=== PATIENT | female | born 1955 | race Caucasian/White ===

== ENCOUNTER 2016-11-26 18:47 | Inpatient (IN) | payer MEDICARE ==
[~2016-11-26] VITALS: Ht 144.8 cm; Wt 50.6 kg
--- NOTE | ~2016-11-26 | CR72 ---
[facility] A Service of [facility] RADIOLOGY TEXT RESULTS PATIENT: NOA MICHAEL LOCATION: [facility] 560-01 : 55 UNIT #: [id number] AGE: [address]: Krzysztof Schroeder MD SEX: F ORDER DR: [id number] [facility] [address] [facility]. [place], [place] [address] [id number] I MR#: [id number] Acc #: [id number] NAME: NOA MICHAEL. : 1955 SEX: F STUDY DATE/TIME: 12/07/2016 6:33 UNIT: [facility] ROOM: [facility] STUDY DESCRIPTION: CR Chest Single View Portable Attending Physician: Fariba Schroeder M.D. Ordering Physician: Fariba Schroeder M.D. Primary Care Physician: Miguel Monsivais A.P.R.N. MEDICAL IMAGING REPORT This report is preliminary unless electronic signature is present EXAM Portable chest 12/07 INDICATION Cough and shortness of air for 11 days. Pulmonary fibrosis. FINDINGS AP portable chest compared with 12/03/2016. Cardiomegaly stable. Right arm PICC in the lower SVC. Pulmonary fibrosis is unchanged. No clear acute infiltrate. There is chronic elevation of the right hemidiaphragm. No pneumothorax. Dictated by... Zi Martin Jr., M.D. THIS IS AN ELECTRONICALLY VERIFIED REPORT Zi Martin Jr., M.D. at 12/07/2016 4:38 PM MAR/kathy TD: 12/07/2016 14:15 JOB #: [id number] MEDICAL IMAGING REPORT Page 1 of 1 COPY
--- NOTE | ~2016-11-26 | EKG ---
PATIENT: NOA MICHAEL UNIT #: [id number] Ventricular Rate: 58 BPM Atrial Rate: 58 BPM P-R Interval: 114 ms QRS Duration: 80 ms Q-T Interval: 406 ms QTC Calculation(Bezet): 398 ms P [place]: 37 degrees Calculated R [place]: 12 degrees Calculated T [place]: 40 degrees Diagnosis Line: Sinus bradycardia Diagnosis Line: Otherwise normal ECG Diagnosis Line: When compared with ECG of 07-DEC-2016 09:47, Diagnosis Line: No significant change was found Diagnosis Line: Confirmed by SHILPA JAY MD ([id number]) on 12/08/2016 Diagnosis Line: 9:42:25 PM INTERPRETING MD: MISTY REVELES
--- NOTE | ~2016-11-26 | EKG ---
PATIENT: NOA MICHAEL UNIT #: [id number] Ventricular Rate: 98 BPM Atrial Rate: 98 BPM P-R Interval: 106 ms QRS Duration: 74 ms Q-T Interval: 342 ms QTC Calculation(Bezet): 436 ms P [place]: 46 degrees Calculated R [place]: -17 degrees Calculated T [place]: 67 degrees Diagnosis Line: Sinus rhythm with short NE Diagnosis Line: Nonspecific ST and T wave abnormality Diagnosis Line: Abnormal ECG Diagnosis Line: When compared with ECG of 16-DEC-2015 13:54, Diagnosis Line: Nonspecific T wave abnormality now evident in Diagnosis Line: Lateral leads Diagnosis Line: Confirmed by BRAULIO ARREAGA MD ([id number]) on Diagnosis Line: 11/27/2016 10:53:40 AM INTERPRETING MD: WHITLEY REVELES
--- NOTE | ~2016-11-26 | CR72 ---
[facility] A Service of [facility] RADIOLOGY TEXT RESULTS PATIENT: NOA MICHAEL LOCATION: [facility] : 55 UNIT #: [id number] AGE: [address]: Krzysztof Schroeder MD SEX: F ORDER DR: [id number] [facility]. [place], [place] [address] [id number] I MR#: [id number] #: [id number] NAME: NOA MICHAEL. : 1955 SEX: F STUDY DATE/TIME: 11/26/2016 19:39 UNIT: [facility] ROOM: [facility] STUDY DESCRIPTION: CR Chest Single View Portable Attending Physician: Fariba Schroeder M.D. Ordering Physician: Zi Vitale M.D. Primary Care Physician: Miguel Monsivais A.P.R.N. MEDICAL IMAGING REPORT This report is preliminary unless electronic signature is present EXAM Portable chest 11/26/2016. HISTORY 61-year-old female with shortness of air and chest pain for 3 months, worsening over the last 1 week. History of diabetes and idiopathic pulmonary fibrosis. COMPARISON Chest 12/16/2015. FINDINGS 2 frontal views of the chest again demonstrate diffuse coarse interstitial changes throughout both lungs, consistent with pulmonary fibrosis. No definite new pulmonary infiltrates identified. No pneumothorax or pleural effusion. Heart size and mediastinum are within normal limits. Pulmonary vasculature unremarkable. IMPRESSION Diffuse coarse bilateral interstitial opacities throughout both lungs, consistent with known history of the pathic pulmonary fibrosis. No definite new pulmonary infiltrates identified. Dictated by... Sedrick Christopher M.D. THIS IS AN ELECTRONICALLY VERIFIED REPORT Sedrick Christopher M.D. at 11/27/2016 4:41 PM DANIEL/aftab TD: 11/27/2016 08:28 JOB #: [id number] [facility] A Service of [facility] RADIOLOGY TEXT RESULTS PATIENT: NOA MICHAEL LOCATION: [facility] : 55 UNIT #: [id number] AGE: [address]: Krzysztof Schroeder MD SEX: F ORDER DR: MEDICAL IMAGING REPORT Page 1 of 1 COPY
--- NOTE | ~2016-11-26 | EKG ---
PATIENT: NOA MICHAEL UNIT #: [id number] Ventricular Rate: 52 BPM Atrial Rate: 52 BPM P-R Interval: 124 ms QRS Duration: 80 ms Q-T Interval: 448 ms QTC Calculation(Bezet): 416 ms P [place]: 31 degrees Calculated R [place]: 14 degrees Calculated T [place]: 22 degrees Diagnosis Line: Sinus bradycardia Diagnosis Line: Otherwise normal ECG Diagnosis Line: When compared with ECG of 02-DEC-2016 13:30, Diagnosis Line: (unconfirmed) Diagnosis Line: No significant change was found Diagnosis Line: Confirmed by SHILPA JAY MD ([id number]) on 12/05/2016 Diagnosis Line: 3:19:11 PM INTERPRETING MD: MISTY REVELES
--- NOTE | ~2016-11-26 | EKG ---
PATIENT: NOA MICHAEL UNIT #: [id number] Ventricular Rate: 53 BPM Atrial Rate: 53 BPM P-R Interval: 112 ms QRS Duration: 74 ms Q-T Interval: 426 ms QTC Calculation(Bezet): 399 ms P [place]: 32 degrees Calculated R [place]: 2 degrees Calculated T [place]: 25 degrees Diagnosis Line: Sinus bradycardia Diagnosis Line: Otherwise normal ECG Diagnosis Line: When compared with ECG of 03-DEC-2016 05:37, Diagnosis Line: No significant change was found Diagnosis Line: Confirmed by SHILPA JAY MD ([id number]) on 12/08/2016 Diagnosis Line: 5:15:02 AM INTERPRETING MD: MISTY REVELES
--- NOTE | ~2016-11-26 | CR72 ---
[facility] A Service of [facility] & [facility] RADIOLOGY TEXT RESULTS PATIENT: NOA MICHAEL LOCATION: [facility] 560-01 : 55 UNIT #: [id number] AGE: [address]: Krzysztof Schroeder MD SEX: F ORDER DR: [id number] [facility] [address] [facility] [place], [place] [address] [id number] I MR#: [id number] Acc #: [id number] NAME: NOA MICHAEL. : 1955 SEX: F STUDY DATE/TIME: 12/08/2016 5:00 UNIT: [facility] ROOM: [facility] STUDY DESCRIPTION: CR Chest Single View Portable Attending Physician: Krzysztof Schroeder Ordering Physician: Fariba Schroeder M.D. Primary Care Physician: Alvina GouldPNiaRFelipe MEDICAL IMAGING REPORT This report is preliminary unless electronic signature is present EXAM CHEST x-ray: 12/08/2016 HISTORY Pulmonary fibrosis. Shortness of air and cough. Follow up inpatient cardiopulmonary status. TECHNIQUE AP portable chest x-ray. FINDINGS Moderately severe diffuse chronic interstitial pulmonary fibrosis throughout the periphery of both lungs, unchanged since yesterday. No evidence of superimposed acute pulmonary infiltrate or pleural effusion. Stable mild cardiomegaly. Stable chronic elevation right hemidiaphragm. Right arm PICC tip in the upper right atrium. IMPRESSION Stable portable chest radiograph, unchanged since yesterday. Dictated by... Tomás Lanier M.D. THIS IS AN ELECTRONICALLY VERIFIED REPORT Tomás Lanier M.D. at 12/08/2016 9:59 PM VIVIW/chaya TD: 12/08/2016 13:26 JOB #: [id number] MEDICAL IMAGING REPORT Page 1 of 1 COPY
--- NOTE | ~2016-11-26 | EKG ---
PATIENT: NOA MICHAEL UNIT #: [id number] Ventricular Rate: 58 BPM Atrial Rate: 58 BPM P-R Interval: 122 ms QRS Duration: 76 ms Q-T Interval: 410 ms QTC Calculation(Bezet): 402 ms P [place]: 47 degrees Calculated R [place]: 21 degrees Calculated T [place]: 48 degrees Diagnosis Line: Sinus bradycardia Diagnosis Line: Otherwise normal ECG Diagnosis Line: When compared with ECG of 05-DEC-2016 23:16, Diagnosis Line: (unconfirmed) Diagnosis Line: No significant change was found Diagnosis Line: Confirmed by SHILPA JAY MD ([id number]) on 12/08/2016 Diagnosis Line: 5:16:07 AM INTERPRETING MD: MISTY REVELES
--- NOTE | ~2016-11-26 | DS ---
Unit #: [id number] #: [id number] Patient: NOA MICHAEL [id number] [facility]. [place], [place] [address] [id number] I MR#: [id number] NAME: NOA MICHAEL. ROOM: 560 Age: 61 Sex: F Admission Date: 11/26/2016 : 1955 Discharge Date: 12/08/2016 Attending Physician: Fariba Schroeder M.D. Primary Care Physician: Miguel Monsivais A.P.R.N. DISCHARGE SUMMARY DIAGNOSES 1. Chronic obstructive pulmonary disease exacerbation. 2. Shortness of breath. 3. Chest pain. 4. Pulmonary fibrosis. 5. History of syncope. 6. Sinus pause of 3 seconds. 7. Coronary artery disease, left circumflex. PROCEDURE Procedure is stenting of the left circumflex. CONSULTANTS Consulting is Dr. Santiago. HISTORY/HOSPITAL COURSE This is a 61-year-old lady with a history of severe COPD and pulmonary fibrosis who had a WI at [facility] remotely. The patient has significant hypertension, COPD, pulmonary fibrosis, depression, quit smoking approximately 6 months ago. Patient presented to emergency department with complaints of increasing shortness of breath for 1 week. Patient reports that she has been undergoing a lot of stress. Her granddaughter had a seizure. Patient noted that when she was walking from [place] parking lot, she was having progressive shortness of breath. Patient was brought into the hospital following that. Patient states that she has been feeling dizzy spells, difficulty urinating for several weeks. She had 1 syncopal episode and no significant chest pain. She has been having a dry, hacky cough once she was admitted (1) to the hospital. Patient sleeps approximately on 2 to 3 pillows at night. In the emergency department patient's vital signs showed a heart rate of 101, but she was hypoxic; therefore, she was admitted to the hospital. Patient a usual course of decreasing steroids, as well as antibiotics, for COPD exacerbation. Patient improved very quickly. She is on Plaquenil at home, and on hospital day 4 patient was going to be discharged. However, it was noted that she had a significant transaminitis. Plaquenil was stopped and the patient completed her course of azithromycin with no significant worsening of shortness of breath, and on hospital day 5 patient was going to be discharged. However, she had a 3-second pause. Cardiology consulted. She had a stress test, which showed some inferior stress-induced ischemia. Therefore, patient had a cardiac catheterization, which showed disease in the left circumflex. This was attempted to be treated medically; however, only 2 days prior to "admission," the patient developed significant chest pain, and, therefore, on hospital day 11 Unit #: [id number] #: [id number] Patient: NOA MICHAEL patient had a cardiac catheterization with stent placement. Following this, patient is ready to go home and follow up in our office for COPD. DISCHARGE MEDICATIONS The discharge medications include: 1. Ventolin 2 puffs every 4 hours as needed. 2. Symbicort 2 puffs b.i.d. 3. Ipratropium albuterol nebs t.i.d. 4. Prednisone 60 mg x1 day, 50 mg x1 day, 40 mg x1 day, 30 mg x1 day, 20 mg x1 day, 10 mg x1 day. 5. Gabapentin 300 mg p.o. t.i.d. 6. Zofran 4 mg q.4 hours as needed for nausea. 7. Alprazolam 0.25 mg t.i.d. p.r.n. anxiety. 8. Dulera 200 mcg 2 puffs inhaled twice daily. 9. Metoprolol 12.5 mg twice daily. 10. Reglan 10 mg p.o. b.i.d. 11. Aspirin 81 mg a day. 12. Hydrocodone/acetaminophen 7.5/325 - 1 tablet p.o. t.i.d. p.r.n. 13. Plavix 75 mg daily. 14. Tudorza Pressair 400 mcg b.i.d. 15. Nitroglycerin 0.4 mg sublingual p.r.n. chest pain. 16. Lisinopril 10 mg p.o. q.h.s. 17. Atorvastatin 40 mg p.o. q.h.s. FOLLOW-UP 1. Patient is to follow up with cardiology, Dr. Santiago's office, in 2 weeks. 2. Patient is to follow up with our office in approximately 2 to 3 weeks. 3. Patient is to follow up with primary care doctor to have her pain and anxiety medications refilled. DIET Diet is regular as tolerated. ACTIVITY Activity is as tolerated. Dictated by... Valerie Diaz/juan miguel TD: 12/10/2016 07:35 JOB #: [id number] DISCHARGE SUMMARY Page 1 of 1 X Krzysztof Schroeder MD X DISCHARGE SUMMARY
--- NOTE | ~2016-11-26 | CO ---
Unit #: [id number] #: [id number] Patient: NOA MICHAEL [id number] [facility] [address] [facility]. [place], [place] [address] [id number] I MR#: [id number] NAME: NOA MICHAEL ROOM: 560 Age: 61 Sex: F Admission Date: 11/26/2016 : 1955 Attending Physician: Fariba Schroeder M.D. Primary Care Physician: Miguel Monsivais A.P.R.N. Consultation Date: 12/02/2016 CONSULTATION REPORT REASON FOR CONSULTATION A 3.4 second pause. 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 In 2011 at [facility], she did have a negative Lexiscan Cardiolite stress test. Patient also reports that she was told back in the that she may have had a CT at [facility] but she left against medical advice and details are unknown from this admission. Additional past medical history includes: Hypertension, COPD, pulmonary fibrosis, depression, and reformed tobaccoism. Patient reports that she quit smoking six months ago but has smoked one pack of cigarettes per day since the age of 16. She also informs me that her father required a permanent pacemaker at the age of 60 for a decreased heart rate; however, details again are unknown. Patient presented to the emergency department on November 26, 2016 with complaints of increase of shortness of breath x1 week. The patient reports that she has been undergoing a lot of stress at home and approximately one week ago, her granddaughter had a seizure and had to be admitted to [facility]. The patient noted that from walking to the parking lot into the hospital that she is becoming more and more short of breath. Once her granddaughter was released from the hospital, the patient's family brought her in for further evaluation. The patient also tells me that approximately two weeks she was urinating and felt dizzy. When she went to stand up, she lost consciousness. She does not remember falling to the ground but she was found by her daughter. There have been no reports of chest pain. The patient does inform me that she has had a dry hacky cough but since being admitted to the hospital has become more productive. The patient informs me that she also sleeps on two to three pillows at night. In the emergency department, the patient's vital signs were temperature 98, heart rate 101, respirations 24, blood pressure 102/65, and she was oxygenating 95% on 4 L nasal cannula. She is apparently on chronic O2 at home at 2 to 3 L. She was treated with Solu-Medrol and doxycycline. Pulmonary is following for her respiratory issues. EKG shows sinus rhythm with a rate of 98 beats per minute. Again, the patient denies any complaints of chest pain. PAST MEDICAL HISTORY 1. A 2011 negative Lexiscan Cardiolite stress test. 2. Possible CT at [facility] 20-30 years ago with no details. 3. COPD. 4. Idiopathic pulmonary fibrosis. Unit #: [id number] #: [id number] Patient: NOA MICHAEL 5. Hypertension. 6. Depression. 7. Colon polyps. PAST SURGICAL HISTORY 1. x3. 2. Hysterectomy. 3. Right arm surgery. 4. Right and left knee surgery. 5. Appendectomy. 6. Cholecystectomy. 7. Left lung biopsy. ALLERGIES No known allergies. HOME MEDICATIONS 1. Ipratropium albuterol 3 mL inhalation three times daily. 2. Plaquenil 200 mg p.o. daily. 3. Aspirin 81 mg p.o. every other day. 4. Ventolin two puffs inhalation every four hours p.r.n. shortness of breath. 5. Symbicort 80/4.5 mcg two puffs inhalation b.i.d. 6. Zofran 4 mg p.o. every four hours p.r.n. nausea. 7. Reglan 10 mg p.o. b.i.d. 8. Doxycycline 100 mg p.o. b.i.d. 9. Omnicef 300 mg p.o. b.i.d. 10. Tudorza Pressair 400 mcg inhalation b.i.d. 11. [place] 7.5/325 mg one tab p.o. three times daily p.r.n. 12. Xanax 0.25 mg p.o. daily p.r.n. anxiety. 13. Gabapentin 300 mg p.o. three times daily. FAMILY HISTORY Patient reports that there is a family history of throat cancer, hypertension, coronary artery disease. She informs me that her father at the age of 60 had to have permanent pacemaker placed secondary to a low heart rate. SOCIAL HISTORY Patient endorses that she quit smoking six months ago. She has been smoking one pack of cigarettes per day since the age of 16. She denies any illicit drug abuse or alcohol use. She lives with her daughter and her two grandkids, one of which is autistic. REVIEW OF SYSTEMS A 10-point review of systems has been done and is considered otherwise negative unless indicated in the HPI. PHYSICAL EXAMINATION GENERAL: Patient is awake, alert in no acute distress. VITAL SIGNS: Temperature 97, heart rate 78, respirations 18, blood pressure 127/79, and she is oxygenating 99% on 4 L nasal cannula. HEENT: Head is atraumatic, normocephalic. Pupils equal, round, and reactive. Extraocular movements are intact. No discharge from ears or nares. NECK: Supple. Trachea is midline. Normal carotid upstrokes. LUNGS: Rhonchi bilaterally with expiratory wheezes. ABDOMEN: Soft, nontender, nondistended. Bowel sounds are positive in all Unit #: [id number] #: [id number] Patient: NOA MICHAEL four quadrants. SKIN: Appears to be warm, dry, and intact with no rashes or lesions. EXTREMITIES: No clubbing or cyanosis. The patient has trace bilateral lower extremity edema. NEUROLOGIC: The patient is alert and oriented x3. She is pleasant, conversant. No focal deficits. Cranial nerves II-XII appear to be intact. DIAGNOSTIC STUDIES LABORATORY: Most recent laboratory results: Sodium 137, potassium 4.7, chloride 96, CO2 of 30, BUN 19, creatinine 0.7, glucose 127. IMAGING: CT scan of the chest showed chronic pulmonary fibrosis. Please see radiologist report for full report. CARDIOVASCULAR: EKG shows sinus rhythm. ASSESSMENT 1. Chest pain. 2. Syncope. 3. Sinus pause of 3.244. 4. Acute on chronic pulmonary fibrosis. 5. Acute bronchitis. 6. Hypertension. 7. Negative Lexiscan in 2012. 8. Depression. 9. Reformed tobaccoism. PLAN At this time, will check an EKG now and trend troponins and cardiac enzymes q.6 hours x3. Will check a lipid panel and a TSH. Will obtain a 2D echocardiogram to rule out congestive heart failure. Plan to check a BMP, magnesium in the morning. The patient will be NPO after midnight and consent will be obtained for right and left heart cath per Dr. Santiago in the morning. The patient will be started on nitroglycerin paste half inch b.i.d. Further recommendations will be made per Dr. Santiago. Dictated by... Denise Kenny A.P.R.N. for Loy Santiago M.D. AM/conchita TD: 12/02/2016 15:53 JOB #: [id number] CONSULTATION REPORT Page 1 of 1 X Denise Kenny APRN X CONSULTATION REPORT
--- NOTE | ~2016-11-26 | CT57 ---
[facility] A Service of [facility] & [facility] RADIOLOGY TEXT RESULTS PATIENT: NOA MICHAEL LOCATION: [facility] 560-01 : 55 UNIT #: [id number] AGE: [address]: Krzysztof Schroeder MD SEX: F ORDER DR: [id number] [facility] [address] [facility] [place], [place] [address] [id number] MR#: [id number] #: [id number] NAME: NOA MICHAEL. : 1955 SEX: F STUDY DATE/TIME: 11/28/2016 15:24 UNIT: [facility] ROOM: [facility] STUDY DESCRIPTION: CT Chest Wo Cont Attending Physician: Fariba Schroeder M.D. Ordering Physician: Slim Méndez M.D. Primary Care Physician: Miguel Monsivais A.P.R.N. MEDICAL IMAGING REPORT This report is preliminary unless electronic signature is present EXAM CT of the chest 11/28/2016 HISTORY Short of air, dyspnea for 3 months. Cough. Pulmonary fibrosis, COPD. Cardiac hypertension, diabetes. TECHNIQUE This CT exam was performed with one or more of the following radiation dose reduction techniques: Automatic exposure control, adjustment of mA and/or kV according to patient size, and iterative reconstruction. FINDINGS CT of the chest performed without administration of intravenous contrast. Following standard CT of the chest, high-resolution imaging was performed with thin section axial images obtained at 10 mm intervals through the chest. Prone images obtained through the lung bases. Expiratory images obtained at upper mid and lower lung zones. Comparison 12/16/2015. Thyroid unremarkable. No axillary adenopathy. Less than 1 cm short axis prevascular aortopulmonary window and paratracheal nodes unchanged. There is a 9 mm short-axis precarinal lymph node which is slightly less pronounced than in 2016 when it measured about 11 mm in short axis. There is a 9-10 mm short-axis subcarinal lymph node less pronounced than in 2016. The heart is normal in size. No pleural effusions. Visualized portions of liver unremarkable. Status post cholecystectomy. The spleen, pancreas, adrenal glands, upper renal poles, esophagus, visualized portions of stomach, small bowel and colon are unremarkable. The lungs show underlying emphysema. Extensive coarse peripheral subpleural interstitial markings. Areas of honeycombing in the upper, mid and lower lung zones bilaterally, slightly more pronounced at the right apex, right lung base, and left mid to upper portion of the left upper lobe. There is no evidence of pulmonary volume loss. The distribution of fibrotic change is stable compared to prior study. There is a slight increase in STS. [facility] A Service of [facility] RADIOLOGY TEXT RESULTS PATIENT: NOA MICHAEL LOCATION: [facility] 560-01 : 55 UNIT #: [id number] AGE: [address]: Krzysztof Schroeder MD SEX: F ORDER DR: thickness of the interstitial markings peripherally in the right upper, mid and lower lung zones. I believe there may be a slight increase in fibrotic change in the right lung base compared to November 2015. In the left lung the upper lobe changes are stable. The left lower lobe changes show some minimal progression at the lung base. There is no dense airspace disease. There is no suspicious pulmonary nodule. The unopacified vascular structures are unremarkable. The bony structures show no acute-appearing bony abnormality. The high-resolution images corroborate the above findings. No significant change in basilar findings with prone imaging. There is mild cylindrical bronchiectasis in the lungs bilaterally. More pronounced in the obz-bv-wioyn lung zones. Expiratory phase images show no significant air trapping. IMPRESSION 1. Please see the complete dictation above for full details. There is no compelling evidence of acute infectious or inflammatory disease in the lungs. No dense airspace consolidation and no suspicious nodule. 2. Underlying emphysema and cylindrical bronchiectasis. Bronchiectatic changes more pronounced in the zfk-rd-rtajq lung zones bilaterally and mild overall. 3. Evidence of chronic pulmonary fibrosis. This is most pronounced in the periphery of the lungs. There is evidence of honeycombing in the periphery of the lungs. Areas of greatest involvement in the left mid to upper portions of the left upper lobe, at the left lung base, and in the periphery of the right upper, mid and lower lung zones most pronounced at the right lower lung zone. Findings more pronounced overall on right than left. There is an increase in interstitial marking thickness in these regions compared to November 2015, and there is some mild progression of fibrotic change in the bilateral lung bases. I do not see clear indication of volume loss in the lungs at this time. 4. Small mediastinal lymph nodes stable to decreased in size from prior study and likely reactive in nature. 5. Heart size normal. 6. Visualized upper abdomen shows postoperative change of cholecystectomy. Dictated by... Ernesto Gallegos M.D. THIS IS AN ELECTRONICALLY VERIFIED REPORT Ernesto Gallegos M.D. at 11/30/2016 5:05 PM KELLY/kathy TD: 11/30/2016 07:01 [facility]. [facility] A Service of [facility] RADIOLOGY TEXT RESULTS PATIENT: NOA MICHAEL LOCATION: [facility] 560-01 : 55 UNIT #: [id number] AGE: [address]: Krzysztof Schroeder MD SEX: F ORDER DR: EDUARDO #: [id number] MEDICAL IMAGING REPORT Page 1 of 1 COPY
--- NOTE | ~2016-11-26 | EKG ---
PATIENT: NOA MICHAEL UNIT #: [id number] Ventricular Rate: 62 BPM Atrial Rate: 62 BPM P-R Interval: 118 ms QRS Duration: 86 ms Q-T Interval: 388 ms QTC Calculation(Bezet): 393 ms P [place]: 31 degrees Calculated R [place]: -5 degrees Calculated T [place]: 11 degrees Diagnosis Line: Normal sinus rhythm Diagnosis Line: Normal ECG Diagnosis Line: When compared with ECG of 26-NOV-2016 19:33, Diagnosis Line: Vent. rate has decreased BY 36 BPM Diagnosis Line: T wave inversion now evident in Inferior leads Diagnosis Line: Nonspecific T wave abnormality no longer evident Diagnosis Line: in Lateral leads Diagnosis Line: Confirmed by SHILPA JAY MD ([id number]) on 12/05/2016 Diagnosis Line: 3:18:14 PM INTERPRETING MD: MISTY REVELES
--- NOTE | ~2016-11-26 | EKG ---
PATIENT: NOA MICHAEL UNIT #: [id number] Ventricular Rate: 61 BPM Atrial Rate: 61 BPM P-R Interval: 122 ms QRS Duration: 76 ms Q-T Interval: 412 ms QTC Calculation(Bezet): 414 ms P [place]: 41 degrees Calculated R [place]: 4 degrees Calculated T [place]: 32 degrees Diagnosis Line: Normal sinus rhythm Diagnosis Line: Normal ECG Diagnosis Line: Diagnosis Line: Confirmed by SHILPA JAY MD ([id number]) on 12/08/2016 Diagnosis Line: 5:23:53 AM INTERPRETING MD: MISTY REVELES
--- NOTE | ~2016-11-26 | A ---
[facility] Nutrition Therapy DATE: 12/08/16 Patient: NOA MICHAEL Physician: ARIANNA Address: [address] [place] [address] RUN Room/Bed: [address] [place] [address], Zip: [place] [address] Admit Date: 11/26/16 Date of : 55 Height: 4 9 Weight: 111 50.6 NUTRITIONAL ASSESSMENT: REASON: Length of stay Admitting dx: Pt is a 61 y/o female admitted with COPD PMH: HTN, COPD, pulmonary fibrosis, depression, 1 PPD smoker (recently quit), possible SC Anthropometrics: Ht:57" Wt:111# BMI:24 Adm wt:106# Labs: Na+:134, Cl-:96, Gluc:138, BUN:26, Alb:3.7, ALT:76 Meds: Zofran, Pepcid, Reglan, Aspirin, Prednisone, Lopressor I/O & Bowel function: BM 12/06 Skin Integrity: Puncture procedural site- right groin Assessment: Chart reviewed, events noted. Pt was seen for length of stay. Loin Trimmer was able to speak to the pt at bedside. Pt reports having a good appetite and eating >90% of her meals 3x daily. Loin Trimmer was able to assess her breakfast tray which was 100% complete. Pt states that her usual body weight is 106#, but that she gained weight in the hospital this visit. Loin Trimmer encouraged the pt to continue eating 3 meals a day and to make healthy choices for her heart healthy diet. Pt reported no questions at this time. RD will follow-up per protocol. Dx: Altered nutrient utilization r/t PMH AEB need for a therapeutic diet. Intervention: See RD recs below Monitoring, Evaluation and Goals: 1. PO intake >75% of meals. 2. Labs WNL. 3. Promote regular BM's. Recommendations: 1. Continue pt with heart healthy diet restriction 2' PMH. 2. Appreciate staff and family to encourage adequate PO intake to meet pt's estimated nutrtional requirements. [facility] Nutrition Therapy DATE: 12/08/16 Patient: NOA MICHAEL Physician: ARIANNA Address: [address] [place] [address] RUN Room/Bed: [address] [place] [address], Zip: [place] [address] Admit Date: 11/26/16 Date of : 55 Height: 4 9 Weight: [address] will follow Respectfully, Marguerite Elmore, Apartment House Manager Son Schmidt, MS, RD, LD [employer] cc: client file
--- NOTE | ~2016-11-26 | XA166 ---
[facility] A Service of [facility] & [facility] RADIOLOGY TEXT RESULTS PATIENT: NOA MICHAEL LOCATION: [facility] 560-01 : 55 UNIT #: [id number] AGE: [address]: Krzysztof Schroeder MD SEX: F ORDER DR: [id number] [facility] [address]. [place], [place] [address] [id number] I MR#: [id number] Acc #: [id number] NAME: NOA MICHAEL. : 1955 SEX: F STUDY DATE/TIME: 12/03/2016 14:10 UNIT: [facility] ROOM: [facility] STUDY DESCRIPTION: XA PICC Line Placement WO Port Attending Physician: Fariba Schroeder M.D. Ordering Physician: Fariba Schroeder M.D. Primary Care Physician: Miguel Monsivais A.P.R.N. MEDICAL IMAGING REPORT This report is preliminary unless electronic signature is present EXAM PICC line insertion, 12/03/2016. HISTORY IV access needed. PRE-PROCEDURE The procedure was explained to the patient and/or patient billing representative including risks, benefits, potential complications and potential for alternative forms of treatment. Informed consent was obtained, and prior to initiating the procedure a formal timeout procedure was performed. PROCEDURE Using full standard sterile barrier technique, including caps, gowns, gloves, masks, as well as sterile skin preparation and standard sterile draping, the right arm was prepped and draped in the usual fashion, and real-time sterile ultrasound guidance was used to localize an arm vein and to confirm vessel patency. A hard copy ultrasound image was recorded. After local anesthesia with 1% Xylocaine, the vein was punctured using real-time sterile ultrasound guidance, and an 0.018 guidewire was advanced into the superior vena cava, using fluoroscopic guidance. A 4 [place] single-lumen PICC was then measured and deployed with the tip positioned in the superior vena cava. The position of the line was documented with a radiographic image. The line was secured in place with an adhesive dressing and an antibiotic patch was applied. Total fluoro time was 0.1 minutes. Single fluoroscopic spot image obtained. IMPRESSION Successful placement of a 4 [place] single-lumen PowerPICC via the right arm under ultrasound and fluoroscopic guidance. The tip of the PICC is in good position in the superior vena cava. [facility]. [facility] A Service of [facility] RADIOLOGY TEXT RESULTS PATIENT: NOA MICHAEL LOCATION: [facility] 560-01 : 55 UNIT #: [id number] AGE: [address]: Krzysztof Schroeder MD SEX: F ORDER DR: Dictated by... Shady Clark M.D. THIS IS AN ELECTRONICALLY VERIFIED REPORT Shady Clark M.D. at 12/04/2016 3:59 PM TEV/pc TD: 12/04/2016 05:31 JOB #: [id number] MEDICAL IMAGING REPORT Page 1 of 1 COPY
--- NOTE | ~2016-11-26 | CR72 ---
[facility] A Service of [facility] & [facility] RADIOLOGY TEXT RESULTS PATIENT: NOA MICHAEL LOCATION: [facility] 560-01 : 55 UNIT #: [id number] AGE: [address]: Krzysztof Schroeder MD SEX: F ORDER DR: [id number] [facility] [address] [facility] [address]. [place], [place] [address] [id number] I MR#: [id number] #: [id number] NAME: NOA MICHAEL. : 1955 SEX: F STUDY DATE/TIME: 12/03/2016 04:30 UNIT: [facility] ROOM: [facility] STUDY DESCRIPTION: CR Chest Single View Portable Attending Physician: Fariba Schroeder M.D. Ordering Physician: Fariba Schroeder M.D. Primary Care Physician: Miguel Monsivais A.P.R.N. MEDICAL IMAGING REPORT This report is preliminary unless electronic signature is present EXAM Portable chest, 12/03 04:30 hours INDICATION COPD. Shortness of air for 7 days. FINDINGS AP portable chest compared with 11/26/2016. The heart is enlarged. There is emphysema with interstitial fibrosis. There is chronic elevation of the right hemidiaphragm. No pneumothorax. No significant interval change. Dictated by... Zi Martin Jr., M.D. THIS IS AN ELECTRONICALLY VERIFIED REPORT Zi Martin Jr., M.D. at 12/04/2016 1:54 AM MAR/sommer TD: 12/03/2016 12:46 JOB #: [id number] MEDICAL IMAGING REPORT Page 1 of 1 COPY
[~2016-11-26 18:47] MED LIST: ALBUTEROL17 GM INH; ALPRAZOLAM PO; AMOXICILLIN500 M1 PO; AMOXICILLIN875 MG PO; ASPIRIN PO; ASPIRIN81 M2 PO; AUGMENTIN875 MG PO; BENZONATATE PO; CELEXA PO; CHOLESTEROL PILL; CIPRO PO; CLARITIN10 M2 PO; CLEOCIN150 MG PO; COMBIVENT U/D3 M1 INH; DOXYCYCLINE HY100 M3 PO; GABAPENTIN300 MG PO; HYDROCODONE-APA1 T61 PO; IPRATR-ALBUTEROL3 ML IH; KLONOPIN0.5 MG PO; LASIX PO; LEVAQUIN750 MG PO; MOBIC PO; NEURONTIN100 MG PO; NITROGLYCERIN TOP; OMNICEF300 M1 PO; PERCOCET5/325 PO; PHENERGAN DM SYRUP; PHENERGAN DM1 ML PO; PHENERGAN12.5 MG PO; PLAQUENIL200 MG PO; PREDNISONE PO; PREDNISONE10 MG/DOSE PO; PROVENTIL; REGLAN10 MG PO; ROBITUSSIN COUGH PO; STERAPRED5 MG/DOSE1 PO; SYMBICORT INH; SYMBICORT80 INH; TUDORZA PRESS400 MCG IH; ULTRAM PO; VICODIN 5/1 TAB 5/50 PO; VICODIN 5/500 T1 TAB PO; VICODIN PO; ZITHROMAX PO; ZOFRAN PO
[2016-11-26 20:56] LABS: BASOPHIL# 0.1 X10e3 (0-0.3); BASOPHIL% 0.3 % (0-2.5); DIFF IND YES; HEMATOCRIT 39.9 % (35.0-45.0); HEMOGLOBIN 12.8 gm/dL (12.0-16.0); LYMPHOCYTE# 1.4 X10e3 (1.0-3.5); LYMPHOCYTE% 6.2 % (17.0-45.0); MEAN CELL VOLUME 92.3 FL (83-96); MEAN CORPUSCULAR HEMOGLOBIN 29.6 PG (28-34); MEAN CORPUSCULAR HGB CONC 32.1 g/dL (30-36); MEAN PLATELET VOLUME 8.3 FL (6.5-11.5); MONOCYTE# 2.2 X10e3 (0-1.0); MONOCYTE% 9.9 % (3.0-12.0); NEUTROPHIL# 18.7 X10e3 (1.5-7.1); NEUTROPHIL% 83.6 % (40-75); PLATELET COUNT 373 X10e3 (140-420); RED BLOOD COUNT 4.32 X10e (3.90-5.30); WHITE BLOOD COUNT 22.3 X10e3 (4.0-10.5)
[2016-11-26 21:10] LABS: ANISOCYTOSIS MOD; PLATELET ESTIMATE NORMAL (NORMAL); POIKILOCYTOSIS SL
[2016-11-26 21:23] LABS: ALBUMIN SERUM 3.5 g/dL (3.5-5.0); BILIRUBIN, DIRECT 0.4 mg/dL (0.0-0.2); BILIRUBIN,INDIRECT 1.2 mg/dL (0.0-0.9); BILIRUBIN,TOTAL 1.6 mg/dL (0.2-2.0); BUN/CREATININE RATIO 13.75; CALCIUM SERUM 8.6 mg/dL (8.4-10.2); CREATININE SERUM 0.8 mg/dL (0.6-1.4); GLOM FILT RATE Estimated 79.6 mL/min (>60); POTASSIUM 3.6 mmol/L (3.5-5.1); PROTEIN TOTAL SERUM 7.6 g/dL (6.0-8.3)
[2016-11-27] MEDS ORDERED: HYDROCODON-ACE1 EAC9 PO (03:24)
[2016-11-27] MEDS ORDERED: XANAX0.5 M1 PO (04:05)
[2016-11-27] MEDS ORDERED: GABAPENTIN300 M2 PO (04:06)
[2016-11-28 05:12] LABS: HEMATOCRIT 34.7 % (35.0-45.0); HEMOGLOBIN 11.2 gm/dL (12.0-16.0); MEAN CELL VOLUME 92.7 FL (83-96); MEAN CORPUSCULAR HEMOGLOBIN 29.9 PG (28-34); MEAN CORPUSCULAR HGB CONC 32.3 g/dL (30-36); MEAN PLATELET VOLUME 8.3 FL (6.5-11.5); RED BLOOD COUNT 3.75 X10e (3.90-5.30); RED CELL DISTRIBUTION WIDTH 14.8 % (11.0-15.5); WHITE BLOOD COUNT 22.4 X10e3 (4.0-10.5)
[2016-11-28 06:10] LABS: BUN/CREATININE RATIO 17.5; CALCIUM SERUM 9.1 mg/dL (8.4-10.2); CREATININE SERUM 0.8 mg/dL (0.6-1.4); GLOM FILT RATE Estimated 79.6 mL/min (>60); POTASSIUM 3.2 mmol/L (3.5-5.1)
[2016-11-28 06:15] LABS: PROCALCITONIN 0.67 NG/ML
[2016-11-29 05:50] LABS: HEMATOCRIT 35.9 % (35.0-45.0); HEMOGLOBIN 11.6 gm/dL (12.0-16.0); MEAN CORPUSCULAR HGB CONC 32.3 g/dL (30-36); MEAN PLATELET VOLUME 8.9 FL (6.5-11.5); RED BLOOD COUNT 3.86 X10e (3.90-5.30); RED CELL DISTRIBUTION WIDTH 15.3 % (11.0-15.5); WHITE BLOOD COUNT 20.8 X10e3 (4.0-10.5)
[2016-11-29 06:27] LABS: BUN/CREATININE RATIO 22.5; CALCIUM SERUM 8.9 mg/dL (8.4-10.2); CREATININE SERUM 0.8 mg/dL (0.6-1.4); GLOM FILT RATE Estimated 79.6 mL/min (>60); POTASSIUM 4.5 mmol/L (3.5-5.1)
[2016-12-01 06:11] LABS: ALBUMIN SERUM 3.3 g/dL (3.5-5.0); BILIRUBIN,TOTAL 0.3 mg/dL (0.2-2.0); BUN/CREATININE RATIO 22.85; CALCIUM SERUM 8.5 mg/dL (8.4-10.2); CREATININE SERUM 0.7 mg/dL (0.6-1.4); GLOM FILT RATE Estimated 93.5 mL/min (>60); POTASSIUM 4.3 mmol/L (3.5-5.1); PROTEIN TOTAL SERUM 6.1 g/dL (6.0-8.3)
[2016-12-02 06:25] LABS: ALBUMIN SERUM 3.1 g/dL (3.5-5.0); BILIRUBIN,TOTAL 0.3 mg/dL (0.2-2.0); BUN/CREATININE RATIO 27.14; CALCIUM SERUM 8.4 mg/dL (8.4-10.2); CREATININE SERUM 0.7 mg/dL (0.6-1.4); GLOM FILT RATE Estimated 93.5 mL/min (>60); POTASSIUM 4.7 mmol/L (3.5-5.1); PROTEIN TOTAL SERUM 5.7 g/dL (6.0-8.3)
[2016-12-02 14:31] LABS: CK TOTAL 25 IU/L (26-140)
[2016-12-02 14:36] LABS: CHOLESTEROL 166 mg/dL (0-200); HDL CHOLESTEROL 54 mg/dL (35-95); LDL CHOLESTEROL 42 mg/dL ([, -130]); LDL/HDL RATIO 1 RATIO (0-4); TRIGLYCERIDES 349 mg/dL (10-160)
[2016-12-02 19:44] LABS: CK TOTAL 23 IU/L (26-140)
[2016-12-03 06:45] LABS: HEMATOCRIT 36.4 % (35.0-45.0); HEMOGLOBIN 11.7 gm/dL (12.0-16.0); MEAN CELL VOLUME 92.9 FL (83-96); MEAN CORPUSCULAR HEMOGLOBIN 29.7 PG (28-34); MEAN PLATELET VOLUME 7.4 FL (6.5-11.5); RED BLOOD COUNT 3.92 X10e (3.90-5.30); RED CELL DISTRIBUTION WIDTH 15.5 % (11.0-15.5); WHITE BLOOD COUNT 18.3 X10e3 (4.0-10.5)
[2016-12-03 06:59] LABS: PARTIAL THROMBOPLASTIN TIME 22.9 SECONDS (23.5-31.3); PROTHROMBIN TIME (PATIENT) 10.7 SECONDS (10.0-11.7)
[2016-12-03 07:29] LABS: ALBUMIN SERUM 3.2 g/dL (3.5-5.0); BILIRUBIN,TOTAL 0.7 mg/dL (0.2-2.0); BUN/CREATININE RATIO 31.66; CALCIUM SERUM 8.5 mg/dL (8.4-10.2); CREATININE SERUM 0.6 mg/dL (0.6-1.4); GLOM FILT RATE Estimated 98.4 mL/min (>60); MAGNESIUM 2.1 mg/dL (1.6-3.0); POTASSIUM 4.1 mmol/L (3.5-5.1); PROTEIN TOTAL SERUM 6.2 g/dL (6.0-8.3)
[2016-12-04 06:41] LABS: HA AB IGM (HEPPAN) Nonreactive (()); HB CORE AB IGM (HEPPAN) Nonreactive (Nonreactive); HB S AG (HEPPAN) Nonreactive (Nonreactive); HEP C AB (HEPPAN) Nonreactive (Nonreactive); HEP C AB SIGNAL TO CUTOFF 0.01 ratio (<1.00)
[2016-12-04 07:28] LABS: CREATININE SERUM 0.6 mg/dL (0.6-1.4); GLOM FILT RATE Estimated 98.4 mL/min (>60)
[2016-12-04 07:34] LABS: ALBUMIN SERUM 3.7 g/dL (3.5-5.0); BILIRUBIN,TOTAL 0.7 mg/dL (0.2-2.0); CALCIUM SERUM 8.7 mg/dL (8.4-10.2); CREATININE SERUM 0.6 mg/dL (0.6-1.4); GLOM FILT RATE Estimated 98.4 mL/min (>60); PROTEIN TOTAL SERUM 6.5 g/dL (6.0-8.3)
[2016-12-04 07:41] LABS: POTASSIUM 5.7 mmol/L (3.5-5.1)
[2016-12-06 00:01] LABS: CK TOTAL 22 IU/L (26-140)
[2016-12-07 06:42] LABS: HEMATOCRIT 38.1 % (35.0-45.0); HEMOGLOBIN 12.3 gm/dL (12.0-16.0); MEAN CELL VOLUME 91.9 FL (83-96); MEAN CORPUSCULAR HEMOGLOBIN 29.7 PG (28-34); MEAN CORPUSCULAR HGB CONC 32.3 g/dL (30-36); RED BLOOD COUNT 4.15 X10e (3.90-5.30); RED CELL DISTRIBUTION WIDTH 15.8 % (11.0-15.5); WHITE BLOOD COUNT 15.3 X10e3 (4.0-10.5)
[2016-12-07 06:50] LABS: INR 0.9; PARTIAL THROMBOPLASTIN TIME 23.6 SECONDS (23.5-31.3); PROTHROMBIN TIME (PATIENT) 10.2 SECONDS (10.0-11.7)
[2016-12-07 07:47] LABS: BUN/CREATININE RATIO 46.66; CALCIUM SERUM 8.8 mg/dL (8.4-10.2); CREATININE SERUM 0.6 mg/dL (0.6-1.4); GLOM FILT RATE Estimated 98.4 mL/min (>60); POTASSIUM 5.4 mmol/L (3.5-5.1)
[2016-12-07 17:58] LABS: ANGIO %MB 6.7 % (0.0-4.0); ANGIO MB 1.2 ng/ml
[2016-12-08 01:53] LABS: ANGIO MB 1.6 ng/ml
[2016-12-08 07:26] LABS: BUN/CREATININE RATIO 43.33; CREATININE SERUM 0.6 mg/dL (0.6-1.4); GLOM FILT RATE Estimated 98.4 mL/min (>60)
[2016-12-08] MEDS ORDERED: MILLIPRED5 MG PO (21:26)
[2016-12-08] MEDS ORDERED: METOPROLOL SUCC25 MG PO (21:30)
[2016-12-08] MEDS ORDERED: CLOPIDOGREL75 MG PO (21:31)
[2016-12-08] MEDS ORDERED: NITROGLYGERIN0.4 MG SL (21:36)
[2016-12-08] MEDS ORDERED: LIPITOR40 MG PO (21:37)
[2016-12-08] MEDS ORDERED: LISINOPRIL10 MG PO (21:38)
== END 2016-12-08 22:04 | disposition home or self-care (01) | DRG 981 ==
LOC: CED 18:47 → CEDOF 22:55 → C5B 22:55 → CED 23:01 → CEDOF 23:01 → C5B 11-27 00:52
PROVIDERS: Emergency Medicine; Internal Medicine Cardiovascular Disease; Internal Medicine Pulmonary Disease; Nurse Practitioner
PROC: 02HV33Z Insertion of Infusion Device into Superior Vena Cava, Percutaneous Approach (ICD-10-PCS; 2016-12-03)
PROC: B548ZZA Ultrasonography of Superior Vena Cava, Guidance (ICD-10-PCS; 2016-12-03)
PROC: B24BZZZ Ultrasonography of Heart with Aorta (ICD-10-PCS; 2016-12-03)
PROC: 4A023N8 Measurement of Cardiac Sampling and Pressure, Bilateral, Percutaneous Approach (ICD-10-PCS; principal; 2016-12-07)
PROC: 027034Z Dilation of Coronary Artery, One Artery with Drug-eluting Intraluminal Device, Percutaneous Approach (ICD-10-PCS; 2016-12-07)
PROC: B215YZZ Fluoroscopy of Left Heart using Other Contrast (ICD-10-PCS; 2016-12-07)
PROC: B211YZZ Fluoroscopy of Multiple Coronary Arteries using Other Contrast (ICD-10-PCS; 2016-12-07)
DX: J44.1 Chronic obstructive pulmonary disease with (acute) exacerbation (principal); J96.00 Acute respiratory failure, unspecified whether with hypoxia or hypercapnia; I47.1 Supraventricular tachycardia; J44.0 Chronic obstructive pulmonary disease with (acute) lower respiratory infection; J84.10 Pulmonary fibrosis, unspecified; J20.9 Acute bronchitis, unspecified; R07.9 Chest pain, unspecified; I25.10 Atherosclerotic heart disease of native coronary artery without angina pectoris; I45.5 Other specified heart block; I25.2 Old myocardial infarction; I10 Essential (primary) hypertension; F32.9 Major depressive disorder, single episode, unspecified; Z87.891 Personal history of nicotine dependence; R74.0 Nonspecific elevation of levels of transaminase and lactic acid dehydrogenase [LDH]; R55 Syncope and collapse; Z90.49 Acquired absence of other specified parts of digestive tract; Z90.710 Acquired absence of both cervix and uterus; Z86.010 Personal history of colon polyps
CPT/HCPCS: 36415; 71010; 71250; 76937; 77001; 80048; 80053; 80061; 80074; 80076; 82308; 82550; 82553; 82565; 82810; 82947; 83735; 83880; 84443; 84484; 85025; 85027; 85347; 85610; 85730; 87070; 87205; 93005; 93306; 94640; 94664; 94760; 94761; 96374; 99152; 99153; 99285; C1725; C1751; C1769; C1874; C1887; C1894; J0461; J0696; J1644; J1650; J2250; J2270; J2405; J2920; J2930; J3010